=== PATIENT | female | born 1980 | race Caucasian/White ===

== ENCOUNTER 2018-03-16 05:00 | Inpatient (IN) | payer MEDICAID ==
[2018-03-16] MEDS ORDERED: LACTATED RINGER'S 1,000 ML IV (05:38)
[2018-03-16 05:44] LABS: ADD MAN DIFF? NO
[2018-03-16] MEDS ORDERED: LABETALOL HCL 20MG INJ (05:54)
[2018-03-16] MEDS ORDERED: MAGNESIUM SULFATE 4 GM/100 ML 100 ML (05:54)
[2018-03-16] MEDS: LABETALOL HCL 20MG INJ IV (05:59)
[2018-03-16] MEDS ORDERED: MISOPROSTOL 200 MCG TAB PR ×2 (06:00→09:30)
[2018-03-16] MEDS ORDERED: METHYLERGONOVINE 0.2 MG INJ IM (06:00)
[2018-03-16] MEDS ORDERED: CARBOPROST 250 MCG INJ IM ×2 (06:00→09:30)
[2018-03-16] MEDS: MAGNESIUM SULFATE 4 GM/100 ML 100 ML IVPB (06:01)
[2018-03-16 06:08] LABS: INR 0.97; PARTIAL THROMBOPLASTIN TIME 26.2 Sec (23.0-35.0)
[2018-03-16 06:13] LABS: WHITE BLOOD COUNT 14.5 10^3/ul (4.8-10.8)
[2018-03-16 06:13] LABS: BASOPHILS % 0.3 % (0.0-2.0); EOSINOPHILS % 0.2 % (0.0-7.0); HEMATOCRIT 34.8 % (37.0-47.0); HEMOGLOBIN 11.9 g/dl (12.0-16.0); LYMPHOCYTES # 2.1 10^3/ul (0.8-2.9); LYMPHOCYTES % 14.6 % (15.0-51.0); MEAN CORPUSCULAR HEMOGLOBIN 28.6 pg (29.0-33.0); MEAN CORPUSCULAR HGB CONC 34.2 g/dl (32.0-37.0); MEAN CORPUSCULAR VOLUME 83.7 fl (82.0-101.0); MEAN PLATELET VOLUME 9.8 fl (7.4-10.4); MONOCYTE # 1.3 10^3/ul (0.3-0.9); MONOCYTES % 8.9 % (0.0-11.0); NEUTROPHILS % 75.5 % (39.0-77.0); PLATELET COUNT 221 10^3/UL (140-415); RED BLOOD COUNT 4.16 10^6/ul (4.20-5.40); RED CELL DISTRIBUTION WIDTH 13.6 % (11.5-14.5)
[2018-03-16] MEDS: MAGNESIUM SULFATE 20 GM/500 ML 500 ML IV ×2 (06:33→16:33)
[2018-03-16 06:37] LABS: HEPATITIS B SURFACE ANTIGEN NEGATIVE (NEGATIVE)
[2018-03-16] MEDS ORDERED: FENTAnyl 50 MCG/ML VIAL (06:57)
[2018-03-16] MEDS ORDERED: morphine SULFATE/PF (10 MG/10 ML) INJ (06:57)
[2018-03-16] MEDS ORDERED: ONDANSETRON 4 MG INJ (07:20)
[2018-03-16] MEDS ORDERED: DEXAMETHASONE 4 MG/ML 1 ML INJ (07:20)
[2018-03-16] MEDS ORDERED: DIPHENHYDRAMINE 50 MG INJ IV (08:30)
[2018-03-16] MEDS ORDERED: ZOLPIDEM 5 MG TAB PO (08:30)
[2018-03-16] MEDS ORDERED: ONDANSETRON 4 MG INJ IV (08:30)
[2018-03-16] MEDS ORDERED: HYDROmorphONE 0.5 MG/0.5 ML SYG IV ×2 (08:30)
[2018-03-16] MEDS ORDERED: NALOXONE (0.4 MG/ML) INJ IV (08:30)
[2018-03-16] MEDS: OXYTOCIN 30 UNITS/LR 500 ML IV ×3 (08:48→16:31)
[2018-03-16] MEDS: DEXTROSE 5%-LR 1,000 ML IV ×2 (09:24→23:35)
[2018-03-16] MEDS ORDERED: OXYTOCIN 30 UNITS/LR 500 ML IV (09:30)
[2018-03-16] MEDS ORDERED: METHYLERGONOVINE 0.2 MG TAB PO (09:30)
[2018-03-16] MEDS ORDERED: MAGNESIUM HYDROXIDE 30ML CUP PO (09:30)
[2018-03-16] MEDS ORDERED: LANOLIN HPA 1 PKT TOP (09:30)
[2018-03-16] MEDS: CEFAZOLIN 2 GM/50 ML (PMX) 50 ML IVPB (10:06)
[2018-03-16 13:03] LABS: MAGNESIUM 3.9 mg/dl (1.7-2.5)
[2018-03-16] MEDS: METHYLERGONOVINE 0.2 MG INJ IM (13:40)
[2018-03-16 15:42] LABS: RAPID PLASMA REAGIN NONREACTIVE (NR)
[2018-03-16] MEDS: MISOPROSTOL 200 MCG TAB PR (16:19)
[2018-03-16] MEDS: MISOPROSTOL 200 MCG TAB PO (16:36)
[2018-03-16] MEDS ORDERED: MISOPROSTOL 50 MCG CAPSULE PO (17:00)
[2018-03-16 19:23] LABS: MAGNESIUM 4.5 mg/dl (1.7-2.5)
[2018-03-16] MEDS: SENNA/DOCUSATE NA (8.6MG/50MG) TAB PO (21:00)
[2018-03-17] MEDS: DEXTROSE 5%-LR 1,000 ML IV (01:24)
[2018-03-17 01:30] LABS: MAGNESIUM 4.8 mg/dl (1.7-2.5)
[2018-03-17] MEDS: KETOROLAC 30 MG INJ IV (02:27)
[2018-03-17] MEDS: MAGNESIUM SULFATE 20 GM/500 ML 500 ML IV (02:29)
[2018-03-17 08:26] LABS: ADD MAN DIFF? NO
[2018-03-17 08:37] LABS: WHITE BLOOD COUNT 15.7 10^3/ul (4.8-10.8)
[2018-03-17 08:37] LABS: BASOPHILS % 0.2 % (0.0-2.0); EOSINOPHILS % 0.2 % (0.0-7.0); HEMATOCRIT 24.1 % (37.0-47.0); LYMPHOCYTES # 2.6 10^3/ul (0.8-2.9); LYMPHOCYTES % 16.3 % (15.0-51.0); MEAN CORPUSCULAR HEMOGLOBIN 28.4 pg (29.0-33.0); MEAN CORPUSCULAR HGB CONC 33.2 g/dl (32.0-37.0); MEAN CORPUSCULAR VOLUME 85.5 fl (82.0-101.0); MEAN PLATELET VOLUME 10.2 fl (7.4-10.4); MONOCYTE # 1.1 10^3/ul (0.3-0.9); MONOCYTES % 7.3 % (0.0-11.0); NEUTROPHIL # 11.9 10^3/ul (1.6-7.5); NEUTROPHILS % 75.6 % (39.0-77.0); PLATELET COUNT 180 10^3/UL (140-415); RED BLOOD COUNT 2.82 10^6/ul (4.20-5.40); RED CELL DISTRIBUTION WIDTH 14.3 % (11.5-14.5)
[2018-03-17] MEDS: IBUPROFEN 800 MG TAB PO ×2 (09:19→17:51)
[2018-03-17] MEDS: SENNA/DOCUSATE NA (8.6MG/50MG) TAB PO ×2 (09:20→20:31)
[2018-03-17 09:23] LABS: MAGNESIUM 5.1 mg/dl (1.7-2.5)
[2018-03-17] MEDS ORDERED: HYDROCODONE/APAP (5/325) TAB PO (11:00)
[2018-03-17] MEDS: DIPHTH/TET/ACEL PERTUSS (ADULT) 0.5 ML VIAL IM* (11:04)
[2018-03-17] MEDS: HYDROCODONE/APAP (5/325) TAB PO ×2 (12:24→20:31)
[2018-03-18] MEDS: IBUPROFEN 800 MG TAB PO ×3 (00:49→17:05)
[2018-03-18] MEDS: HYDROCODONE/APAP (5/325) TAB PO ×3 (05:10→21:00)
[2018-03-18 07:29] LABS: ADD MAN DIFF? NO
[2018-03-18 07:33] LABS: BASOPHILS % 0.2 % (0.0-2.0); EOSINOPHILS # 0.1 10^3/ul (0.0-0.5); EOSINOPHILS % 0.4 % (0.0-7.0); HEMATOCRIT 24.5 % (37.0-47.0); HEMOGLOBIN 8.1 g/dl (12.0-16.0); LYMPHOCYTES # 2.1 10^3/ul (0.8-2.9); MEAN CORPUSCULAR HGB CONC 33.1 g/dl (32.0-37.0); MEAN CORPUSCULAR VOLUME 87.8 fl (82.0-101.0); MONOCYTE # 1.1 10^3/ul (0.3-0.9); NEUTROPHIL # 12.6 10^3/ul (1.6-7.5); NEUTROPHILS % 78.8 % (39.0-77.0); PLATELET COUNT 204 10^3/UL (140-415); RED BLOOD COUNT 2.79 10^6/ul (4.20-5.40); RED CELL DISTRIBUTION WIDTH 14.9 % (11.5-14.5)
[2018-03-18] MEDS: SENNA/DOCUSATE NA (8.6MG/50MG) TAB PO ×2 (09:58→21:00)
[2018-03-19] MEDS: IBUPROFEN 800 MG TAB PO ×2 (03:47→09:35)
[2018-03-19] MEDS: HYDROCODONE/APAP (5/325) TAB PO (05:00)
[2018-03-19] MEDS: MEASLES,MUMPS,RUBELLA VACCINE INJ SC* (07:28)
[2018-03-19] MEDS ORDERED: DIPHTH/TET/ACEL PERTUSS (ADULT) 0.5 ML VIAL IM* (09:00)
[2018-03-19] MEDS: SENNA/DOCUSATE NA (8.6MG/50MG) TAB PO (09:35)
== END 2018-03-19 14:14 | disposition home or self-care (01) | DRG 787 ==
LOC: OBT 05:00 → L-D 05:00 → OBT 05:40 → L-D 05:40 → PP1 12:08
PROVIDERS: Obstetrics & Gynecology
PROC: 10D00Z1 Extraction of Products of Conception, Low, Open Approach (ICD-10-PCS; principal; 2018-03-16 07:30)
DX: O45.8X3 Other premature separation of placenta, third trimester (principal); O10.02 Pre-existing essential hypertension complicating childbirth; O69.2XX0 Labor and delivery complicated by other cord entanglement, with compression, not applicable or unspecified; O11.4 Pre-existing hypertension with pre-eclampsia, complicating childbirth; Z3A.36 36 weeks gestation of pregnancy; Z37.0 Single live birth
CPT/HCPCS: 36415; 76815; 83735; 85025; 85610; 85730; 86592; 86850; 86900; 86901; 86920; 87340; 88307; 99464